=== PATIENT | female | born 1955 | race Caucasian/White ===

== ENCOUNTER 2016-11-19 10:27 | Emergency (ER) | payer OTHER ==
[~2016-11-19] VITALS: Ht 152.4 cm; Wt 60.0 kg
[~2016-11-19 10:27] MED LIST: ASPI-664 PO; METF500T4 PO; PRAV40TA76 PO; RAMI5CAP46 PO
[2016-11-19] MEDS ORDERED: SOD CHLORIDE 0.9% 1,000 ML IV STA (10:44)
[2016-11-19] MEDS ORDERED: ONDANSETRON 4 MG INJ IV STA (10:44)
[2016-11-19 10:48] VITALS: Ht 152.4 cm; Wt 60.0 kg
--- NOTE | 2016-11-19 11:40 | RADRPT ---
PROCEDURE: XR Chest. CLINICAL INDICATION: Chest Pain. TECHNIQUE: Single frontal view of the chest was obtained COMPARISON: Chest x-ray 08/29/2014 FINDINGS: The cardiomediastinal silhouette is within normal limits. There is atherosclerotic calcification of the thoracic aorta. No pneumothorax, pleural effusion, or parenchymal consolidation is identified. There is mild bibasilar atelectasis, increased compared to prior study. No evidence of significant pulmonary vascular congestion. There are multilevel degenerative changes of the visualized spine. IMPRESSION: 1. Thoracic aortic atherosclerosis. 2. Mild bibasilar atelectasis, increased compared to prior study. RPTAT: PP Physician James Date Time Electronically viewed and signed by Physician James on 11/19/2016 11:39 /
[2016-11-19 11:44] LABS: BASOPHILS % 0.2 % (0.0-2.0); EOSINOPHILS % 0.1 % (0.0-7.0); HEMATOCRIT 35.9 % (37.0-47.0); HEMOGLOBIN 12.2 g/dl (12.0-16.0); LYMPHOCYTES # 1.2 10^3/ul (0.8-2.9); LYMPHOCYTES % 13.9 % (15.0-51.0); MEAN CORPUSCULAR VOLUME 91.1 fl (82.0-101.0); MEAN PLATELET VOLUME 10.7 fl (7.4-10.4); MONOCYTE # 0.2 10^3/ul (0.3-0.9); MONOCYTES % 2.7 % (0.0-11.0); NEUTROPHIL # 7.4 10^3/ul (1.6-7.5); NEUTROPHILS % 82.7 % (39.0-77.0); PLATELET COUNT 272 10^3/UL (140-415); RED BLOOD COUNT 3.94 10^6/ul (4.20-5.40); RED CELL DISTRIBUTION WIDTH 12.4 % (11.5-14.5); WHITE BLOOD COUNT 8.9 10^3/ul (4.8-10.8)
[2016-11-19 12:02] LABS: ALANINE AMINOTRANSFERASE 62 IU/L (13-69); ALKALINE PHOSPHATASE 76 IU/L (42-121); ANION GAP 19 (8-16); ASPARTATE AMINO TRANSFERASE 35 IU/L (15-46); BILIRUBIN,INDIRECT 0.3 mg/dl (0-1.1); BILIRUBIN,TOTAL 0.3 mg/dl (0.2-1.3); BLOOD UREA NITROGEN 17 mg/dl (7-20); CALCIUM 9.7 mg/dl (8.4-10.2); CARBON DIOXIDE 29 mmol/L (21-31); CHLORIDE 101 mmol/L (97-110); CREATININE 0.56 mg/dl (0.44-1.00); GLUCOSE 178 mg/dl (70-220); POTASSIUM 4.1 mmol/L (3.5-5.1); SODIUM 145 mmol/L (135-144)
[2016-11-19 12:03] LABS: ALBUMIN 4.6 g/dl (3.3-4.9); ALBUMIN/GLOBULIN RATIO 1.48; TOTAL PROTEIN 7.7 g/dl (6.1-8.1)
[2016-11-19 12:19] LABS: TROPONIN-I < 0.012 ng/ml (0.00-0.12)
[2016-11-19] MEDS ORDERED: MECL12.574 PO (12:25)
[2016-11-19] MEDS ORDERED: ONDA4TAB8 PO (12:25)
[2016-11-19] MEDS ORDERED: MECLIZINE 12.5 MG TAB PO ONE (12:30)
--- NOTE | 2016-11-19 12:30 | ERD ---
ER Documentation Chief Complaint Date/Time DATE: 11/19/16 TIME: 1044 Chief Complaint nausea, vomting, diarrhea, and dizziness since 11/18/16 evening HPI 61-year-old female presents to the emergency department complaining of dizziness. Patient was in her usual state of health until yesterday which time she began having nonbilious, nonbloody emesis. This was associated with loose stool and diarrhea. She had a nonspecific visceral abdominal discomfort and nausea. This then provoked a vertiginous type dizziness. She had no headache or focal weakness or numbness. She continued to have the above symptoms and came to the emergency department for evaluation. Upon arrival, she reports no fevers, chills. Patient states that while she was dizzy, she had a non-syncopal fall and hurt her right knee. However, she has been ambulatory without difficulty since that fall. ROS All systems reviewed and are negative except as per history of present illness. Medications Home Meds Active Scripts Meclizine Hcl* (Antivert*) 12.5 Mg Tab, 12.5 MG PO Q6H Y for DIZZINESS, #20 TAB Prov:ROBERT PARKS 11/19/16 Ondansetron Hcl* (Zofran*) 4 Mg Tablet, 4 MG PO Q8H Y for NAUSEA AND/OR VOMITING , #30 TAB Prov:ROBERT PARKS 11/19/16 Reported Medications Pravastatin Sodium* (Pravastatin Sodium*) 40 Mg Tablet, 40 MG PO HS, TAB 08/29/14 Ramipril (Ramipril) 5 Mg Capsule, 5 MG PO DAILY, CAP 08/29/14 Aspirin* (Aspirin* EC) 81 Mg Tablet.dr, 81 MG PO DAILY, TAB 08/29/14 Metformin Hcl* (Metformin Hcl*) 500 Mg Tablet, 500 MG PO BID, TAB 08/29/14 Allergies Allergies: Coded Allergies: No Known Allergy (Unverified , 08/29/14) PMhx/Soc History of Surgery: No Hx Respiratory Disorders: No Hx Alcohol Use: No Hx Substance Use: No Hx Tobacco Use: No Smoking Status: Never smoker FmHx Noncontributory for chief complaint Physical Exam Vitals Vital Signs Date Time Temp Pulse Resp B/P Pulse Ox O2 Delivery O2 Flow Rate FiO2 11/19/16 10:48 98.1 89 16 132/81 100 Physical Exam GENERAL: The patient is well developed and appropriate for usual state of health in no apparent distress HEENT: Pupils equal, round, and reactive to light. EOMI. There is no scleral icterus. NECK: C-spine is soft and supple, there is no meningismus. There is no cervical lymphadenopathy. LUNGS: Clear to auscultation bilaterally. There are no rales, wheezes or rhonchi. HEART: Regular rate and rhythm, no murmurs, clicks, rubs or gallops. ABDOMEN: Soft, non-tender, non-distended. There are bowel sounds in all four quadrants. No rebound or guarding. EXTREMITIES: There is no peripheral cyanosis or edema. No focal swelling or erythema. No specific tenderness about the right knee with no effusion or obvious trauma or deformity NEURO: The patient moves all four extremities with 5/5 strength. Cranial nerves II - XII are intact. Normal gait. Alert and oriented. Finger to nose is normal bilaterally SKIN: There is no apparent rash or petechiae. HEME/LYMPHATIC: There is no evidence of excessive bruising or lymphedema. PSYCHIATRIC: The patient does not appear anxious or depressed. Result Diagram: 11/19/16 1133 11/19/16 1133 Results 24 hrs Laboratory Tests Test 11/19/16 11:33 White Blood Count 8.910^3/ul Red Blood Count 3.9410^6/ul Hemoglobin 12.2g/dl Hematocrit 35.9% Mean Corpuscular Volume 91.1fl Mean Corpuscular Hemoglobin 31.0pg Mean Corpuscular Hemoglobin Concent 34.0g/dl Red Cell Distribution Width 12.4% Platelet Count 67621^3/UL Mean Platelet Volume 10.7fl Neutrophils % 82.7% Lymphocytes % 13.9% Monocytes % 2.7% Eosinophils % 0.1% Basophils % 0.2% Nucleated Red Blood Cells % 0.0/100WBC Neutrophils # 7.410^3/ul Lymphocytes # 1.210^3/ul Monocytes # 0.210^3/ul Eosinophils # 0.010^3/ul Basophils # 0.010^3/ul Nucleated Red Blood Cells # 0.010^3/ul Prothrombin Time Pending Prothrombin Time Ratio 1.0 INR International Normalized Ratio Pending Activated Partial Thromboplast Time 22.0Sec Sodium Level 145mmol/L Potassium Level 4.1mmol/L Chloride Level 101mmol/L Carbon Dioxide Level 29mmol/L Anion Gap 19 Blood Urea Nitrogen 17mg/dl Creatinine 0.56mg/dl Glucose Level 178mg/dl Calcium Level 9.7mg/dl Total Bilirubin 0.3mg/dl Direct Bilirubin 0.00mg/dl Indirect Bilirubin 0.3mg/dl Aspartate Amino Transf (AST/SGOT) 35IU/L Alanine Aminotransferase (ALT/SGPT) 62IU/L Alkaline Phosphatase 76IU/L Troponin I < 0.012ng/ml Total Protein 7.7g/dl Albumin 4.6g/dl Globulin 3.10g/dl Albumin/Globulin Ratio 1.48 Current Medications Medications (Trade) Dose Ordered Sig/Dipesh Route PRN Reason Start Time Stop Time Status Last Admin Dose Admin Sodium Chloride (NS) 1,000 ml @ 1,000 mls/hr Q1H STAT IV 11/19/16 10:44 11/19/16 11:43 DC 11/19/16 11:15 Ondansetron HCl (Zofran Inj) 4 mg ONCE STAT IV 11/19/16 10:44 11/19/16 10:46 DC 11/19/16 11:15 Meclizine HCl (Antivert) 25 mg ONCE ONCE PO 11/19/16 12:30 11/19/16 12:31 Procedures/MDM Patient was taken to a room, seen and evaluated. Comfort measures were initiated. Diagnostic tests were ordered and reviewed. 3 LEAD RHYTHM STRIP: Normal sinus rhythm without ectopy EK lead EKG reviewed by myself: Normal Sinus Rhythm Normal [place] and intervals No ST elevation, depression, or T wave inversion Impression: Normal EKG RADIOLOGY: reviewed with the radiologist REEVALUATION: Patient remained neurologically normal is symptomatically improved after supportive care in the emergency department. Procedure: Patient had an Praneeth wrap applied under my supervision of the right knee. She was noted to be comfortable and neurovascular intact after the Praneeth wrap application MEDICAL DECISION MAKIN-year-old female presents to the emergency department with vertiginous type dizziness in association with GI symptoms. Patient's clinical examination is not consistent with stroke in terms of her neurologic presentation. Symptomatically, she is improved within dizziness getting better after supportive care. From a GI standpoint, patient has no signs of abdominal tenderness on exam with low risk labs. Overall, after evaluation, she seems to be much improved and appropriate for outpatient care. Departure Diagnosis: Primary Impression: Dizziness Condition: Stable Patient Instructions: Possible Causes of Dizziness or Fainting, Dizziness ( Vertigo) and Balance Problems: Ensuring Your Safety Referrals: CAROLINA CHRISTIAN (PCP) Additional Instructions: See your doctor for follow-up as discussed. Take a copy of your test results, if appropriate, to this follow-up visit. See your doctor or return here if your symptoms do not improve as expected. At any time, please return to the emergency department for any change or worsening in her symptoms. ROBERT PARKS Nov 19, 2016 12:30
--- NOTE | 2016-11-19 12:41 | RADRPT ---
PROCEDURE: XR Knee. CLINICAL INDICATION: Right knee pain TECHNIQUE: 3 images of the right knee are available for review. COMPARISON: None available FINDINGS: There is no acute fracture. Alignment is normal. Joint spaces are preserved. There is a moderate sized suprapatellar enthesophyte. There is a small joint effusion. IMPRESSION: 1. No radiographic evidence of acute osseous abnormality. 2. Moderate sized suprapatellar enthesophyte and small knee joint effusion. RPTAT: UU .Chao Maynard MD, MD Date Time Electronically viewed and signed by .Chao Maynard MD, MD on 11/19/2016 12:40 .K/
[2016-11-19 12:57] LABS: INR 1.01; PROTIME 13.3 Sec (12.2-14.2)
[2016-11-19] MEDS ORDERED: LORAZEPAM 2 MG INJ IV ONE (13:00)
--- NOTE | 2016-11-19 13:52 | RADRPT ---
PROCEDURE: CT Brain without contrast. CLINICAL INDICATION: vertigo TECHNIQUE: A CT of the brain was performed on a [employer] 64-slice CT scanner utilizing axial imaging from the skull base through the vertex without IV contrast. Multiplanar reformatted images were made. Images were reviewed on a PACS workstation. The CTDIvol is 43.86 mGy and the DLP is 720 .23 mGycm. COMPARISON: None FINDINGS: There is no intracranial hemorrhage, mass effect, or midline shift. No extra-axial fluid collection is seen. The ventricles and sulci are normal in size and configuration. The density of the brain is normal, and the costa white matter differentiation appears well-preserved. The visualized paranasal sinuses and osseous structures are grossly unremarkable. Minimal right anterior frontal/supraorbital scalp hematoma is suggested. No acute fracture is identified. IMPRESSION: 1. No evidence of acute intracranial pathology. 2. Probable small right anterior frontal/supraorbital scalp hematoma versus sequelae of prior injur y. RPTAT: PP Physician James Date Time Electronically viewed and signed by Physician James on 11/19/2016 13:52 SHAKIR/
[2016-11-19 17:15] VITALS: BP 108/61; PULSE 94; RESP 18
== END 2016-11-19 17:21 | disposition home or self-care (01) ==
LOC: E/R 10:27
DX: R42 Dizziness and giddiness (principal); R40.2252 Coma scale, best verbal response, oriented, at arrival to emergency department; R40.2142 Coma scale, eyes open, spontaneous, at arrival to emergency department; R40.2362 Coma scale, best motor response, obeys commands, at arrival to emergency department; R07.9 Chest pain, unspecified; Z79.82 Long term (current) use of aspirin
CPT/HCPCS: 70450; 71010; 73562; 80053; 84484; 85025; 85610; 85730; 93005; J7030; 36415; 96374; 96375; J2060; J2405